=== PATIENT | male | born 1975 | race Caucasian/White ===

== ENCOUNTER 2019-03-17 22:27 | Emergency (ER) | payer MEDICAID, MEDICARE ==
[~2019-03-17] VITALS: Ht 172.7 cm; Wt 77.1 kg
[~2019-03-17 22:27] MED LIST: NO MEDS
--- NOTE | 2019-03-17 22:35 | NUR ---
PT BIB SELF C/O R SHOULDER PAIN, "BONE IS STICKING OUT OF MY NECK". BACK PAIN. PT IS AAOX3, NOT IN RESPIRATORY DISTRESS, V/S STABLE, KEPT RESTED AND COMFORTABLE, WILL CONTINUE TO MONITOR.
--- NOTE | 2019-03-17 22:58 | NUR ---
AT BEDSIDE FOR EVAL.
[2019-03-17] MEDS ORDERED: OLANZAPINE 5 MG TABLET ONE (23:03)
--- NOTE | 2019-03-17 23:09 | NUR ---
URINE SPECIMEN COLLECTED AND SENT TO LAB.
--- NOTE | 2019-03-17 23:10 | NUR ---
ER PHLEB AT BEDSIDE FOR BLOOD DRAW.
[2019-03-17 23:21] LABS: APPEARANCE,URINE Clear (CLEAR); BILIRUBIN,URINE SMALL (NEGATIVE); BLOOD, URINE Negative Ery/uL (NEGATIVE); COLOR,URINE Dark (YELLOW); KETONES,URINE Negative (NEGATIVE); LEUKOCYTE ESTERASE ,URINE Negative (NEGATIVE); NITRITE, URINE Negative (NEGATIVE); PROTEIN,URINE Trace mg/dl (NEGATIVE); UGLUCOSE Negative (NEGATIVE); UROBILINOGEN,URINE 0.2 EU/dL (0.2)
[2019-03-17 23:23] LABS: CALCIUM, SERUM 8.4 mg/dL (8.5-10.1); CARBON DIOXIDE 29 mmol/L (21-32); CHLORIDE 103 mmol/L (98-107); CREATININE 0.8 mg/dL (0.6-1.3); GLUCOSE 105 mg/dL (74-106); POTASSIUM 3.6 mmol/L (3.5-5.1); SODIUM SERUM 139 mmol/L (136-145); UREA NITROGEN, BLOOD 15 mg/dL (7-18)
[2019-03-17 23:28] LABS: ALANINE AMINOTRANSFERASE 30 U/L (12-78); ALBUMIN 3.8 g/dL (3.4-5.0); ALKALINE PHOSPHATASE 81 U/L (46-116); ASPARTATE AMINOTRANSFERASE 28 U/L (15-37); BASOPHILS % (AUTO) 0.6 % (0.0-2.0); BILIRUBIN,DIRECT 0.1 mg/dL (0.0-0.2); BILIRUBIN,TOTAL 0.2 mg/dL (0.2-1.0); EOSINOPHILS % (AUTO) 3.9 % (0.0-6.0); HEMATOCRIT 39 % (39-51); HEMOGLOBIN 12.9 g/dL (13.5-17.5); LYMPHOCYTES % (AUTO) 28.7 % (20.0-44.0); MEAN CORPUSCULAR HGB CONC 33 g/dl (31.0-36.0); MEAN CORPUSCULAR VOLUME 86 fL (80-96); MONOCYTES # (AUTO) 0.8 /CMM (0.1-1.30); NEUTROPHILS # (AUTO) 3.9 /CMM (1.8-8.9); NEUTROPHILS % (AUTO) 55.8 % (43.0-81.0); PLATELET COUNT (AUTO) 311 /CMM (150-450); TOTAL PROTEIN, SERUM 7.3 g/dL (6.4-8.2)
[2019-03-17 23:29] LABS: ACETAMINOPHEN 0 ug/ml (10-30); ALCOHOL, BLOOD < 3 mg/dL (0-0); SALICYLATE < 0.2 mg/dL (2.8-20.0)
[2019-03-17] MEDS ORDERED: OLANZAPINE 5 MG TABLET PO ONE (23:30)
[2019-03-18 00:06] LABS: BACTERIA,URINE Few /HPF (None Seen); RBC,URINE 0-2 /HPF (0-2)
[2019-03-18 00:07] LABS: MUCUS,URINE Moderate /LPF (None Seen); SQUAMOUS EPITHELIAL CELL,UR Rare /HPF (None Seen)
[2019-03-18 01:09] VITALS: BP 108/71
--- NOTE | 2019-03-18 02:17 | NUR ---
PT ASLEEP ON BED, EASILY AROUSABLE, V/S STABLE, KEPT RESTED AND COMFORTABLE, WILL CONTINUE TO MONITOR.
--- NOTE | 2019-03-18 03:08 | NUR ---
Patient discharged to home in stable condition. Written and verbal after care instructions given. Patient verbalizes understanding of instruction.
== END 2019-03-18 03:08 | disposition home or self-care (01) ==
LOC: ER 22:35
DX: M79.671 Pain in right foot (principal); F10.10 Alcohol abuse, uncomplicated; F17.200 Nicotine dependence, unspecified, uncomplicated; Y90.0 Blood alcohol level of less than 20 mg/100 ml; Z86.19 Personal history of other infectious and parasitic diseases
CPT/HCPCS: 36415; 73630; 80048; 80076; 80305; 80307; 80329; 81001; 85025; 99284; G0480; 81000-TC

== ENCOUNTER 2019-04-24 23:29 | Emergency (ER) | payer MEDICARE, MEDICAID ==
[~2019-04-24] VITALS: Ht 170.2 cm; Wt 77.1 kg
[2019-04-24 23:47] VITALS: BP 148/79
== END 2019-04-25 00:45 | disposition home or self-care (01) ==
LOC: ER 23:30
DX: M54.2 Cervicalgia (principal); F10.10 Alcohol abuse, uncomplicated; F17.200 Nicotine dependence, unspecified, uncomplicated; Y90.9 Presence of alcohol in blood, level not specified
CPT/HCPCS: 72125-TC

== ENCOUNTER 2024-03-06 00:01 | Emergency (ER) | payer MEDICAID, MEDICARE ==
[~2024-03-06] VITALS: Ht 170.2 cm; Wt 72.6 kg
[2024-03-06] MEDS ORDERED: FAMO20TA8 PO (02:48)
[2024-03-06] MEDS ORDERED: ACET-2605 PO (02:48)
[2024-03-06] MEDS ORDERED: FAMOTIDINE (20 MG) 20 MG TABLET PO ONE (03:00)
[2024-03-06] MEDS ORDERED: ACETAMINOPHEN ES 500 MG TABLET PO ONE (03:00)
[2024-03-06 03:41] VITALS: BP 132/78; TEMP 98.5; O2SAT 99
== END 2024-03-06 03:42 | disposition home or self-care (01) ==
LOC: ER 00:13
DX: R21 Rash and other nonspecific skin eruption (principal); R12 Heartburn; F22 Delusional disorders; F17.200 Nicotine dependence, unspecified, uncomplicated; Z86.19 Personal history of other infectious and parasitic diseases; Z59.00 Homelessness unspecified

== ENCOUNTER 2024-09-27 21:55 | Emergency (ER) | payer MEDICAID, OTHER ==
[~2024-09-27] VITALS: Ht 160 cm; Wt 62.6 kg
[~2024-09-27 21:55] MED LIST changes: +ACET-2605 PO; +FAMO20TA8 PO
[2024-09-27 22:23] VITALS: BP 129/74; TEMP 98; O2SAT 98
[2024-09-28] MEDS ORDERED: PERMETHRIN 59 ML BOTTLE TP ONE (01:00)
== END 2024-09-28 00:53 | disposition home or self-care (01) ==
LOC: ER 22:04
DX: B86 Scabies (principal); L03.818 Cellulitis of other sites; F17.200 Nicotine dependence, unspecified, uncomplicated; Z86.19 Personal history of other infectious and parasitic diseases; Z59.02 Unsheltered homelessness; Z79.899 Other long term (current) drug therapy